=== PATIENT | male | born 1945 | race Caucasian/White ===

== ENCOUNTER 2019-07-24 23:48 | Emergency (ER) | payer OTHER, MEDICARE, SELFPAY ==
[2019-07-24 23:53] VITALS: BP 184/93; PULSE 61; RESP 18; TEMP 36.4; O2SAT 99; BMI 25.1
--- NOTE | 2019-07-25 00:01 | DI.RAD.S_ITS ---
PROCEDURE: XR ACUTE ABDOMEN SERIES INDICATIONS: Abdominal pain, vomiting TECHNIQUE: One view chest and two views of the abdomen were acquired. COMPARISON: None. FINDINGS: Surgical changes and devices: None. Chest: Lungs are clear. Heart size is normal. No pleural effusions. No pneumoperitoneum. Abdomen: There is a large gas filled hiatal hernia. Multiple differential air-fluid levels are present on the upright view. There is likely a dilated loop of small bowel at the right. Some gas and stool is visualized within the ascending colon. Bones: No suspicious bony lesions. IMPRESSION: 1. No acute cardiopulmonary findings. 2. Gas-filled hiatal hernia. 3. Nonspecific bowel gas pattern. However, differential air-fluid levels and questionable right lower quadrant small bowel dilatation may suggest early partial small bowel obstruction. If there is high clinical suspicion for partial obstruction, CT of the abdomen could be used. Dictated by: Jill Guevara M.D. on 07/25/2019 at 6:50 Approved by: Jill Guevara M.D. on 07/25/2019 at 6:53
--- NOTE | 2019-07-25 00:01 | DI.US.S_ITS ---
PROCEDURE: US ABDOMEN LIMITED INDICATIONS: POSTPRANDIAL EPIGASTRIC PAIN TECHNIQUE: Real-time scanning was performed of the abdominal and retroperitoneal organs, with image documentation. COMPARISON: None. FINDINGS: Liver: The liver measures 17.2 cm length and demonstrates increased echogenicity. Gallbladder: The gallbladder wall measures 2.7 mm in diameter. Sludge layered within the fundus. No pericholecystic fluid or sonographic Paredes's sign. Biliary ducts: Intrahepatic bile ducts are non-dilated. Extrahepatic bile duct caliber measures 4.9 mm. Normal is 6-7 mm or less in diameter, or 10 mm or less post-cholecystectomy. Pancreas: The pancreas is not visualized due to bowel gas. IMPRESSION: 1. Gallbladder sludge. No findings to suggest acute cholecystitis or choledocholithiasis. 2. Increased hepatic echogenicity suggesting hepatic steatosis although other sources of hepatocellular dysfunction cannot be excluded. Dictated by: Jill Guevara M.D. on 07/25/2019 at 6:53 Approved by: Jill Guevara M.D. on 07/25/2019 at 6:54
--- NOTE | 2019-07-25 00:01 | ED_ITS ---
HPI - Abdominal Pain General Chief Complaint: Abdominal Pain Stated Complaint: abdominal pain Time Seen by Provider: 07/24/19 23:50 Source: patient Mode of arrival: Ambulatory Limitations: no limitations History of Present Illness HPI narrative: 74-year-old male nonsmoker with history of hypertension presents with his and a chief complaint of severe epigastric pain after eating ice cream this evening. He has had multiple episodes of vomiting. He denies any provocation or palliation of his pain. He denies any history of pain. He has never had any abdominal surgeries. Denies any change in bowel habits and states he had a normal bowel movement this morning. He denies any radiation of his pain MD complaint: abdominal pain Onset (ago): hour(s) Pain Consistency: constant Location: epigastric Severity: severe Radiation: none Relieving factors: nothing Exacerbating factors: nothing Associated symptoms: nausea and vomiting Related Data Previous Rx's Medication Instructions Recorded hydrocodone-acetaminophen 1 tab PO Q4-6H PRN #10 tab 07/25/19 ondansetron 4 mg PO TID-QID PRN #10 tab 07/25/19 pantoprazole [Protonix] 40 mg PO DAILY #30 tab 07/25/19 Allergies Allergy/AdvReac Type Severity Reaction Status Date / Time No Known Drug Allergies Allergy Verified 07/24/19 23:58 Review of Systems Constitutional Constitutional: Denies chills, Denies fatigue, Denies fever(s), Denies frequent falls, Denies lethargy and Denies weakness Eyes Eyes: Denies change in vision, Denies eye discharge, Denies irritation and Denies loss of vision ENT Ears, Nose, Mouth, and Throat: Denies change in voice, Denies dizziness, Denies neck pain, Denies sore throat and Denies throat swelling Cardiovascular Cardiovascular: Denies chest pain, Denies irregular heart rhythm, Denies lightheadedness, Denies palpitations, Denies dyspnea, Denies dyspnea on exertion and Denies orthopnea Respiratory Respiratory: Denies cough, Denies dyspnea, Denies dyspnea on exertion and Denies wheezing Gastrointestinal Gastrointestinal: Reports abdominal pain, Denies change in bowel habits, Denies diarrhea, Reports nausea and Reports vomiting Genitourinary Genitourinary: Denies hematuria, Denies flank pain, Denies urinary incontinence and Denies urinary urgency Musculoskeletal Musculoskeletal: Denies back pain, Denies muscle weakness, Denies neck pain, Denies numbness and Denies tingling Integumentary/Breasts Skin/Breast: Denies pruritus, Denies erythema, Denies rash and Denies wounds Neurologic Neurologic: Denies behavioral changes, Denies confusion, Denies dizziness, Denies frequent falls, Denies loss of vision, Denies numbness, Denies tingling and Denies weakness Psychiatric Psychiatric: Denies anxiety, Denies behavioral changes, Denies confusion, Denies depression, Denies homicidal ideation and Denies suicidal ideation Endocrine Endocrine: Denies fatigue, Denies flushing and Denies palpitations Hematologic/Lymphatic Hematologic/Lymphatic: Denies easy bruising Allergic/Immunologic Allergic/Immunologic: Denies urticaria, Denies throat swelling and Denies wheezing Patient History Social History Smoking Status: Unknown if ever smoked alcohol intake frequency: holidays/special occasions only Substance Use Type: does not use Exam Narrative Exam Narrative: GENERAL: [74] year old patient appears stated age. Well- nourished, well-developed patient, in mild distress. HEAD: Atraumatic. Normocephalic. EYES: Pupils equal round and reactive. Extraocular motions intact. No scleral icterus. No injection or drainage. ENT: Nose without bleeding, purulent drainage. Throat without erythema, tonsillar hypertrophy or exudate. Airway patent. NECK: Trachea midline. Non tender CARDIOVASCULAR: Regular rate and rhythm without murmurs, gallops, or rubs. RESPIRATORY: Clear to auscultation. Breath sounds equal bilaterally. No wheezes, rales, or rhonchi. GASTROINTESTINAL: Abdomen soft, epigastric pain does not worsen with palpation, no pulsatile mass, mild distension is baseline per patient EXTREMITIES: No edema or joint tenderness. BACK: Nontender without deformity or crepitance. No flank tenderness. NEURO: AOx3. SKIN: No rash or erythema of visible areas Initial Vital Signs Initial Vital Signs: Vital Signs Temperature 97.5 F L 07/24/19 23:53 Pulse Rate 61 07/24/19 23:53 Respiratory Rate 18 07/24/19 23:53 Blood Pressure 184/93 H 07/24/19 23:53 Pulse Oximetry 99 07/24/19 23:53 Course Orders Ordered: ED Orders 07/24/19 23:59 Complete Blood Count AUTO DIFF Stat Comprehensive Metabolic Panel Stat Lactate Dehydrogenase Stat Lipase Stat 07/25/19 00:01 US abdomen limited Stat XR acute abdomen series Stat 07/25/19 00:18 Urine Microscopic Stat 07/25/19 01:29 CT abdomen pelvis w con Stat Sodium Chloride (Normal Saline 0.9%) 1,000 mls @ 150 mls/hr IV CONT MATTHEW Last Admin: 07/25/19 00:08 Dose: 150 mls/hr Documented by: VIKRAM Discontinued Medications Hydrocodone Bitart/Acetaminophen (Vicodin 5/325 Prepack) 1 bottle MISC SEEINSTR ONE Stop: 07/25/19 03:40 Hydromorphone HCl (Dilaudid) 0.5 mg IV NOW ONE Stop: 07/24/19 23:59 Last Admin: 07/25/19 00:08 Dose: 0.5 mg Documented by: VIKRAM Hydromorphone HCl (Dilaudid) 0.5 mg IV NOW ONE Stop: 07/25/19 01:03 Last Admin: 07/25/19 01:16 Dose: 0.5 mg Documented by: KHANH Hydromorphone HCl (Dilaudid) 1 mg IV NOW ONE Stop: 07/25/19 01:57 Last Admin: 07/25/19 02:00 Dose: 1 mg Documented by: KHANH Ondansetron HCl (Zofran) 4 mg IV NOW ONE Stop: 07/24/19 23:59 Last Admin: 07/25/19 00:08 Dose: 4 mg Documented by: VIKRAM Ondansetron HCl (Zofran Odt Prepack) 1 bottle MISC SEEINSTR ONE Stop: 07/25/19 03:45 Vital Signs Vital signs: Vital Signs - 8 hr 07/24/19 23:53 07/25/19 01:30 07/25/19 03:00 Temperature 97.5 F L Pulse Rate 61 57 L 64 Respiratory Rate 18 13 15 Blood Pressure 184/93 H Blood Pressure [Right Arm] 142/78 H 168/97 H Pulse Oximetry 99 99 98 07/25/19 03:30 Temperature Pulse Rate 73 Respiratory Rate 15 Blood Pressure Blood Pressure [Right Arm] 161/99 H Pulse Oximetry 99 MDM - Abdominal Pain Lab Data Result diagrams: 07/24/19 23:59 07/24/19 23:59 Labs: Lab Results 07/24/19 07/24/19 07/24/19 Range/Units 00:00 23:59 23:59 WBC 10.4 (4.5-11.0) X10^3/uL RBC 5.16 (4.5-5.9) X10^6/uL Hgb 15.9 (13.5-17.5) g/dL Hct 46.7 (41-53) % MCV 90.5 (80-100) fL MCH 30.9 (26-34) PG MCHC 34.1 (30-36) % RDW 13.9 (11.6-14.8) % Plt Count 261 (150-400) X10^3/uL Neut % (Auto) 70.8 (50-75) % Lymph % (Auto) 20.1 L (25-40) % [place] % (Auto) 8.0 (3-14) % Eos % (Auto) 0.8 L (2-4) % Baso % (Auto) 0.3 (0-2) % Neut # (Auto) 7400 H (0414-5384) /uL Lymph # (Auto) 2100 (7135-6392) /uL [place] # (Auto) 800 (0-900) /uL Eos # (Auto) 100 (0-450) /uL Baso # (Auto) 0 (0-100) /uL Sodium 138 (137-145) mmol/L Potassium 3.9 (3.4-5.1) mmol/L Chloride 103 (98-107) mmol/L Carbon Dioxide 26 (22-32) mmol/L BUN 24 H (9-20) mg/dL Creatinine 1.20 (0.66-1.25) mg/dL Estimated GFR 58.9 L (>60) mL/min BUN/Creatinine Ratio 20.0 (6-22) Glucose 182 H (80-110) mg/dL Calcium 9.1 (8.4-10.2) mg/dL Total Bilirubin 0.6 (0.2-1.3) mg/dL AST 28 (17-59) IU/L ALT 27 (<50) IU/L Alkaline Phosphatase 87 (38-126) U/L Lactate Dehydrogenase 509 (313-618) U/L Total Protein 7.5 (6.3-8.2) g/dL Albumin 4.6 (3.5-5.0) g/dL Globulin 2.9 (1.7-4.1) g/dL Albumin/Globulin Ratio 1.6 (1.0-2.8) Lipase 166 (23-300) U/L Urine RBC None seen (0-5/HPF) Urine WBC 1-5/hpf (0-5/HPF) Ur Squamous Epith Cells None seen (0-5/HPF) Amorphous Sediment 1+ Urine Bacteria None seen (None) Ur Culture Indicated? Cult not indicated Point of care testing: Urine Dip Bedside Urine Glucose Negative Bedside Urine Bilirubin - Negative Bedside Urine Ketone - Negative Urine Specific [place] 1.020 Bedside Urine Occult Blood + Bedside Urine pH 6 Bedside Urine Protein +/- 15 Bedside Urine Urobilinogen - Negative Bedside Urine Nitrite - Negative Bedside Urine Leukocytes + [address] scan - abdomen: Radiologist's impression: Moderate to large hiatal hernia, mild thickening of the gastric wall particularly antral partially collapsed probably artifactual cannot exclude gastritis ECG Data Interpretation: EKG is normal sinus rhythm rate [60] and free of any signs of ischemia or ectopy. No ST segmental elevation or depression. No T wave inversions MDM Narrative Medical decision making narrative: 74-year-old male presents with sudden onset epigastric pain with nausea and vomiting after eating. Extensive workup including consideration of gallbladder disease which is thought less likely given lack of laboratory findings, though ultrasound did show sludge there is no sign of cholecystitis. Pancreatitis considered but thought less likely given lack of lab or imaging findings. Bowel obstruction considered but thought less likely given lack of imaging findings. Gastritis and esophageal spasm thought to be most likely culprits given imaging findings and response to therapy. We did discuss observation in the hospital for continued pain control but patient elects to go home despite discussion of risks and benefits. Patient has had q uestions answered to his apparent satisfaction and understands return precautions Discharge Plan Departure Patient Disposition: Home Clinical Impression: Gastritis Qualifiers: Gastritis type: unspecified gastritis Chronicity: acute Gastritis bleeding: without bleeding Qualified Code(s): K29.00 - Acute gastritis without bleeding Instructions: [place] Diet, DI for Gastritis Activity Restrictions/Additional Instructions: 1. Drink plenty of fluids with frequent small sips. 2. For the next 24 hours a clear liquid diet is advised. After that please employ a brat diet which would include bananas, rice, apples, toast. 3. Please take medications as directed. 4. Please follow-up with your doctor in the next 1-2 days. Call the office for an appointment. 5. Please return to the emergency Department for any worsening or persistent symptoms, such as increasing pain or fever. Prescriptions: New hydrocodone-acetaminophen 5-325 mg tablet 1 tab PO Q4-6H PRN (Reason: pain) Qty: 10 RF: 0 pantoprazole [Protonix] 40 mg tablet,delayed release (DR/EC) 40 mg PO DAILY Qty: 30 RF: 0 ondansetron 4 mg tablet,disintegrating 4 mg PO TID-QID PRN (Reason: nausea and vomiting) Qty: 10 RF: 0 Referrals: [facility] [Outside]
[2019-07-25] MEDS: SODIUM CHLORIDE 0.9% 1,000 ML 150 ML IV (00:08)
[2019-07-25] MEDS: ONDANSETRON 4 MG/2 ML INJ IV (00:08)
[2019-07-25] MEDS: HYDROMORPHONE 0.5 MG INJ IV ×2 (00:08→01:16)
[2019-07-25 00:21] LABS: Alanine Aminotransferase 27 IU/L (<50); Albumin 4.6 g/dL (3.5-5.0); Albumin Globulin Ratio 1.6 (1.0-2.8); Alkaline Phosphatase 87 U/L (38-126); Aspartate Aminotransferase 28 IU/L (17-59); Bilirubin Total 0.6 mg/dL (0.2-1.3); Blood Urea Nitrogen 24 mg/dL (9-20); Calcium 9.1 mg/dL (8.4-10.2); Carbon Dioxide 26 mmol/L (22-32); Chloride 103 mmol/L (98-107); Estimated Glomerular Filt Rate 58.9 mL/min (>60); Globulin 2.9 g/dL (1.7-4.1); Glucose 182 mg/dL (80-110); HEMOLYSIS 21 (0-50); Lipase 166 U/L (23-300); Potassium 3.9 mmol/L (3.4-5.1); Sodium 138 mmol/L (137-145); Total Protein 7.5 g/dL (6.3-8.2)
[2019-07-25 00:22] LABS: Bacteria Urine None Seen; RBC Urine None Seen (0-5/HPF)
[2019-07-25 00:23] LABS: Add Manual Diff / Slide Review NO; Basophils Absolute Auto 0 /uL (0-100); Basophils Percent Auto 0.3 % (0-2); Eosinophils Absolute Auto 100 /uL (0-450); Eosinophils Percent Auto 0.8 % (2-4); Hematocrit 46.7 % (41-53); Hemoglobin 15.9 g/dL (13.5-17.5); Lymphocytes Absolute Auto 2100 /uL (1100-4500); Lymphocytes Percent Auto 20.1 % (25-40); Mean Corpuscular HGB Conc 34.1 % (30-36); Mean Corpuscular Hemoglobin 30.9 PG (26-34); Mean Corpuscular Volume 90.5 fL (80-100); Monocytes Absolute Auto 800 /uL (0-900); Neutrophils Absolute Auto 7400 /uL (1500-7000); Neutrophils Percent Auto 70.8 % (50-75); Platelet Count 261 X10^3/uL (150-400); Red Blood Cell Count 5.16 X10^6/uL (4.5-5.9); Red Cell Distribution Width 13.9 % (11.6-14.8); White Blood Cell Count 10.4 X10^3/uL (4.5-11.0)
[2019-07-25 00:33] LABS: Amorphous Sediment Urine 1+; Culture Indicated Urine Cult Not Indicated; Squamous Epithelial Cell Urine None Seen (0-5/HPF); WBC Urine 1-5/HPF (0-5/HPF)
[2019-07-25 00:35] LABS: Lactate Dehydrogenase 509 U/L (313-618)
--- NOTE | 2019-07-25 01:29 | DI.CT.S_ITS ---
PROCEDURE: CT ABDOMEN PELVIS W CON INDICATIONS: severe abdominal pain TECHNIQUE: After the administration of intravenous contrast, 5 mm thick sections acquired from the diaphragm to the symphysis. 5 mm coronal and sagittal reformats were acquired. For radiation dose reduction, the following was used: automated exposure control, adjustment of mA and/or kV according to patient size. COMPARISON: None. FINDINGS: Image quality: Excellent. ABDOMEN: Lung bases: Mild atelectasis is present at the dependent lung bases. There is a moderate sized hiatal hernia. The gastric cardia demonstrates mild wall thickening likely secondary to nondistention. Solid organs: Liver is normal in size and diffusely hypodense suggesting fatty infiltration. Focal fatty sparing is present at the gallbladder fossa. Gallbladder is unremarkable. Biliary system is non dilated. Pancreas enhances normally. Spleen is normal in size and enhancement. No adrenal nodules. Kidneys demonstrate normal size and enhancement, without hydronephrosis. A low density cyst is present within the upper pole of the right kidney. A low density cyst is present within the midpole the left kidney. Peritoneum and bowel: Bowel loops demonstrate normal wall thickness and caliber. Scattered sigmoid colon diverticular outpouchings are present. No mucosal thickening or pericolonic fat stranding to suggest acute diverticulitis. The appendix is not visualized; however there are no ancillary findings to suggest acute appendicitis. No free fluid or air. Nodes and vessels: No retroperitoneal or mesenteric adenopathy by size criteria. Aorta and inferior vena cava are normal in size. Scattered atheromatous calcifications are present throughout the abdominal aorta. Miscellaneous: No ventral hernias. PELVIS: Genitourinary: Bladder wall thickness is normal. The prostate is mildly enlarged and wound centrally calcified. Miscellaneous: No inguinal hernias or adenopathy. Bones: No suspicious bony lesions. No vertebral body compression fractures. IMPRESSION: 1. No acute intra-abdominal findings. Specifically, no bowel dilatation to suggest obstruction or ileus. 2. The appendix is not visualized; however there are no ancillary findings to suggest acute appendicitis. 3. Diverticulosis. No acute diverticulitis. 4. Moderate-sized hiatal hernia with gastric thickening of the cardia which is likely positional in nature. However, gastritis cannot be excluded. Please correlate clinically and consider direct visualization if indicated. 5. Hepatic steatosis. These findings are concordant with the overnight interpretation. Dictated by: Jill Guevara M.D. on 07/25/2019 at 7:01 Approved by: Jill Guevara M.D. on 07/25/2019 at 7:05
[2019-07-25 01:30] VITALS: BP 142/78; PULSE 57; RESP 13; O2SAT 99
--- NOTE | 2019-07-25 01:31 | PC.NURSE ---
patient o2 sats at 90% after second dose of dilaudid. Placed on 2l NC.
[2019-07-25] MEDS: HYDROMORPHONE 1 MG INJ IV (02:00)
[2019-07-25 03:00] VITALS: BP 168/97; PULSE 64; RESP 15; O2SAT 98
[2019-07-25 03:30] VITALS: BP 161/99; PULSE 73; RESP 15; O2SAT 99
[2019-07-25] MEDS: ONDANSETRON 4 MG ODT PREPACK 1 BOTTLE MISC (04:26)
[2019-07-25] MEDS: HYDROCODONE/ACET 5/325 PREPACK 1 BOTTLE MISC (04:26)
[2019-07-25 04:32] VITALS: BP 161/97; PULSE 65; RESP 16; O2SAT 99
== END 2019-07-25 04:33 | disposition home or self-care (01) ==
PROVIDERS: Emergency Provider Emergency Medicine
DX: K29.00 Acute gastritis without bleeding (principal); R11.2 Nausea with vomiting, unspecified
CPT/HCPCS: 36415; 74022; 74177; 76705; 80053; 81003; 81015; 83615; 83690; 85025; 93005; 96361; 96374; 96375; 96376; 99283; 99285; J1170; J2405; Q9967

== ENCOUNTER 2019-07-29 12:18 | Emergency (ER) | payer OTHER, MEDICARE, SELFPAY ==
[2019-07-29 12:23] VITALS: BP 149/96; PULSE 83; RESP 18; TEMP 36.7; O2SAT 98
[2019-07-29 14:51] VITALS: BP 133/93; PULSE 67; RESP 20; O2SAT 96
--- NOTE | 2019-07-29 14:54 | ED_ITS ---
HPI - Headache <Corinne Leahy PA-C - Last Filed: 07/29/19 20:29> General Chief Complaint: Headache Stated Complaint: shooting pain back of head Time Seen by Provider: 07/29/19 14:52 Source: patient Mode of arrival: Ambulatory Limitations: no limitations History of Present Illness HPI Narrative: This 74-year-old male returns to ED due to persistent headaches which have gradually become more steady. He states that he has a long history of migraines which got better as he aged. Typically if he gets any symptoms now it will resolve with Excedrin migraine, however for the last at least several months he has had intermittent atypical headaches which are an ?electrical shock? type pain in his right posterior scalp which radiate up. He states the pain lasts a couple of seconds, would usually resolve on its own but for the last couple of days have been persistent. He thinks maybe pain medicine he got here the other night for gastritis helped for a little while. May be fluids hel p a little. He states he also took a sleeping pill like NyQuil last night which helped for a little while, otherwise pain can make it difficult to sleep. He denies any other exacerbating or alleviating features, stating modest pain is constant. He denies any fall or trauma. He denies any neck pain, weakness in the extremities or paresthesia. He denies any vision change, nausea or vomiting and has been going about his usual activities. He states that this is quite different than his typical headaches. He does think he had a flu type syndrome before this started, with chills and sweats, runny nose and cough 7-10 days ago, however that has gotten better. He had not had any chest pain or dyspnea. He denies any pain or swelling in the extremities, abdominal pain or other new complaints on systems review. He moved here from [place] recently and does not have a local PCP Related Data Previous Rx's Medication Instructions Recorded hydrocodone-acetaminophen 1 tab PO Q4-6H PRN #10 tab 07/25/19 ondansetron 4 mg PO TID-QID PRN #10 tab 07/25/19 pantoprazole [Protonix] 40 mg PO DAILY #30 tab 07/25/19 gabapentin [Neurontin] 300 mg PO Q8H #30 cap 07/29/19 Allergies Allergy/AdvReac Type Severity Reaction Status Date / Time No Known Drug Allergies Allergy Verified 07/24/19 23:58 Review of Systems <Corinne Leahy PA-C - Last Filed: 07/29/19 20:29> Review of Systems ROS Unobtainable: All systems reviewed & are unremarkable except as noted in HPI and below Patient History <Corinne Leahy PA-C - Last Filed: 07/29/19 20:29> Medical History (Updated 07/29/19 @ 17:11 by Corinne Leahy PA-C) HTN (hypertension) (Chronic) Migraine headache (Chronic) Surgical History (Updated 07/29/19 @ 15:24 by Corinne Leahy PA-C) Status post hernia repair (Resolved) Social History Smoking Status: Never smoker Smoking Status: Never smoker alcohol intake frequency: holidays/special occasions only Substance Use Type: does not use Exam <Corinne Leahy PA-C - Last Filed: 07/29/19 20:29> Narrative Exam Narrative: GENERAL APPEARANCE: Patient sitting comfortably, in no distress. HEENT: PERRL, EOMI, normal TMs and oropharynx, no sinus TTP. No mastoid tenderness NECK: Supple, no masses LUNGS: Clear to auscultation bilaterally. HEART: Rate and rhythm regular without murmur, normal S1 and S2, no S3 or S4. ABDOMEN: Soft, NT, ND, + BS x 4 quadrants NEUROLOGIC: Alert and oriented, normal speech, gait and coordination. DTRs 2+ throughout aside from patellar which are 3+ bilaterally MUSCULOSKELETAL: Full Csp AROM, no C-spine or paraspinal tenderness. Full range of motion through the extremities without tenderness. Strength 5/5 throughout all bauer bilateral upper and lower extremities without tenderness DERMATOLOGIC: 1 pink barely raised papule noted on the right posterior scalp, no other lesions noted Initial Vital Signs Initial Vital Signs: Vital Signs Temperature 98.0 F 07/29/19 12:23 Pulse Rate 83 07/29/19 12:23 Respiratory Rate 18 07/29/19 12:23 Blood Pressure 149/96 H 07/29/19 12:23 Pulse Oximetry 98 07/29/19 12:23 <Renetta Schulz MD - Last Filed: 08/07/19 07:19> Initial Vital Signs Initial Vital Signs: Vital Signs Temperature 98.0 F 07/29/19 12:23 Pulse Rate 83 07/29/19 12:23 Respiratory Rate 18 07/29/19 12:23 Blood Pressure 149/96 H 07/29/19 12:23 Pulse Oximetry 98 07/29/19 12:23 Course <Corinne Leahy PA-C - Last Filed: 07/29/19 20:29> Course Additional Information: Patient has a neurologically normal exam. Headaches are chronic, more persistent recently. Discussed this pain appears to be neuropathic. He did have some improvement with low-dose gabapentin today, no drowsiness or other side effects. It is possible that he had shingles prior to onset is I did see 1 skin lesion on his scalp. We discussed this could also be another type of nerve pain or headache syndrome and does need follow-up, but appears safe for him to monitor at home for now. He was given a prescription for gabapentin. I reviewed findings with attending physician Dr. Schulz who agrees with treatment plan, does not think treatment for temporal arteritis needed given patient lack of any typical symptoms such as vision change or jaw claudication. Headache is atypical for this as well. Patient is going to get established with a local PCP and agreed to return to ED in the interim if any acutely worsening symptoms. Orders Ordered: Discontinued Medications Gabapentin (Neurontin) 200 mg PO NOW ONE Stop: 07/29/19 15:13 Last Admin: 07/29/19 15:52 Dose: 200 mg Documented by: BTONER Vital Signs Vital signs: Vital Signs - 8 hr 07/29/19 14:51 07/29/19 16:06 07/29/19 16:30 Pulse Rate 67 77 67 Respiratory Rate 20 22 21 Blood Pressure Blood Pressure [Left Arm] 133/93 H 138/85 143/86 H Pulse Oximetry 96 99 97 07/29/19 17:22 Pulse Rate 72 Respiratory Rate 17 Blood Pressure 154/106 H Blood Pressure [Left Arm] Pulse Oximetry 96 <Renetta Schulz MD - Last Filed: 08/07/19 07:19> Orders Ordered: Discontinued Medications Gabapentin (Neurontin) 200 mg PO NOW ONE Stop: 07/29/19 15:13 Last Admin: 07/29/19 15:52 Dose: 200 mg Documented by: BTONER Vital Signs Vital signs: Vital Signs - 8 hr 07/29/19 14:51 07/29/19 16:06 07/29/19 16:30 Pulse Rate 67 77 67 Respiratory Rate 20 22 21 Blood Pressure Blood Pressure [Left Arm] 133/93 H 138/85 143/86 H Pulse Oximetry 96 99 97 07/29/19 17:22 Pulse Rate 72 Respiratory Rate 17 Blood Pressure 154/106 H Blood Pressure [Left Arm] Pulse Oximetry 96 MDM - Headache <Corinne Leahy PA-C - Last Filed: 07/29/19 20:29> Lab Data Attestation: I reviewed the patient's lab results. Result diagrams: 07/29/19 15:32 07/29/19 15:32 Labs: Lab Results 07/29/19 07/29/19 07/29/19 Range/Units 15:32 15:32 17:10 WBC 10.9 (4.5-11.0) X10^3/uL RBC 4.95 (4.5-5.9) X10^6/uL Hgb 15.4 (13.5-17.5) g/dL Hct 43.9 (41-53) % MCV 88.7 (80-100) fL MCH 31.1 (26-34) PG MCHC 35.0 (30-36) % RDW 13.5 (11.6-14.8) % Plt Count 278 (150-400) X10^3/uL Neut % (Auto) 73.7 (50-75) % Lymph % (Auto) 13.4 L (25-40) % [place] % (Auto) 11.1 (3-14) % Eos % (Auto) 1.4 L (2-4) % Baso % (Auto) 0.4 (0-2) % Neut # (Auto) 8000 H (5164-8747) /uL Lymph # (Auto) 1500 (7718-1815) /uL [place] # (Auto) 1200 H (0-900) /uL Eos # (Auto) 200 (0-450) /uL Baso # (Auto) 0 (0-100) /uL ESR 33 H (0-15) MM/HR Sodium 139 (137-145) mmol/L Potassium 3.8 (3.4-5.1) mmol/L Chloride 99 (98-107) mmol/L Carbon Dioxide 28 (22-32) mmol/L BUN 20 (9-20) mg/dL Creatinine 1.10 (0.66-1.25) mg/dL Estimated GFR > 60.0 (>60) mL/min BUN/Creatinine Ratio 18.2 (6-22) Glucose 93 (80-110) mg/dL Calcium 9.0 (8.4-10.2) mg/dL Total Bilirubin 1.0 (0.2-1.3) mg/dL AST 24 (17-59) IU/L ALT 22 (<50) IU/L Alkaline Phosphatase 118 (38-126) U/L C-Reactive Protein 17.2 H (<1.0) mg/dL Total Protein 7.2 (6.3-8.2) g/dL Albumin 4.2 (3.5-5.0) g/dL Globulin 3.0 (1.7-4.1) g/dL Albumin/Globulin Ratio 1.4 (1.0-2.8) Influenza A (RT-PCR) Flu a negative (NEGATIVE) Influenza B (RT-PCR) Flu b negative (NEGATIVE) Imaging Data head: Radiologist's impression: [place] [address] CT Scan Report Signed Patient: Elvin Hastings R#: [id number] : 3Acct:[id number] Age/Sex: 74 / MDate of Service: 07/29/19 Loc: ED Accession Number: [id number] Procedure: CT head/brain wo con Ordering Provider: Corinne Leahy P.A-C PROCEDURE: CT HEAD/BRAIN WO CON INDICATIONS: atypical WALLACE, worsening TECHNIQUE: Noncontrast 4.5 mm thick angled axial sections acquired from the foramen magnum to the vertex, with coronal and sagittal reformats. For radiation dose reduction, the following was used: automated exposure control, adjustment of mA and/or kV according to patient size. COMPARISON: None. FINDINGS: Image quality: Excellent. CSF spaces: Basal cisterns are patent. No extra-axial fluid collections. The ventricles are symmetric in size and shape. Brain: No intracranial bleeds or masses. There is cerebral volume loss for age, with resultant ventricular and sulcal prominence. There are periventricular and deep white matter chronic small vessel ischemic changes. There is intracranial internal carotid artery atherosclerosis. Skull and face: Calvarium and visualized facial bones appear intact, without suspicious lesions. Sinuses: Visualized sinuses and mastoids are clear. IMPRESSION: No acute intracranial abnormality. Dictated by: Rylie Ardon M.D. on 07/29/2019 at 15:31 Approved by: Rylie Ardon M.D. on 07/29/2019 at 15:32 <Renetta Schulz MD - Last Filed: 08/07/19 07:19> Lab Data Labs: Lab Results 07/29/19 07/29/19 07/29/19 Range/Units 15:32 15:32 17:10 WBC 10.9 (4.5-11.0) X10^3/uL RBC 4.95 (4.5-5.9) X10^6/uL Hgb 15.4 (13.5-17.5) g/dL Hct 43.9 (41-53) % MCV 88.7 (80-100) fL MCH 31.1 (26-34) PG MCHC 35.0 (30-36) % RDW 13.5 (11.6-14.8) % Plt Count 278 (150-400) X10^3/uL Neut % (Auto) 73.7 (50-75) % Lymph % (Auto) 13.4 L (25-40) % [place] % (Auto) 11.1 (3-14) % Eos % (Auto) 1.4 L (2-4) % Baso % (Auto) 0.4 (0-2) % Neut # (Auto) 8000 H (3935-6876) /uL Lymph # (Auto) 1500 (5183-1702) /uL [place] # (Auto) 1200 H (0-900) /uL Eos # (Auto) 200 (0-450) /uL Baso # (Auto) 0 (0-100) /uL ESR 33 H (0-15) MM/HR Sodium 139 (137-145) mmol/L Potassium 3.8 (3.4-5.1) mmol/L Chloride 99 (98-107) mmol/L Carbon Dioxide 28 (22-32) mmol/L BUN 20 (9-20) mg/dL Creatinine 1.10 (0.66-1.25) mg/dL Estimated GFR > 60.0 (>60) mL/min BUN/Creatinine Ratio 18.2 (6-22) Glucose 93 (80-110) mg/dL Calcium 9.0 (8.4-10.2) mg/dL Total Bilirubin 1.0 (0.2-1.3) mg/dL AST 24 (17-59) IU/L ALT 22 (<50) IU/L Alkaline Phosphatase 118 (38-126) U/L C-Reactive Protein 17.2 H (<1.0) mg/dL Total Protein 7.2 (6.3-8.2) g/dL Albumin 4.2 (3.5-5.0) g/dL Globulin 3.0 (1.7-4.1) g/dL Albumin/Globulin Ratio 1.4 (1.0-2.8) Influenza A (RT-PCR) Flu a negative (NEGATIVE) Influenza B (RT-PCR) Flu b negative (NEGATIVE) Discharge Plan Departure Patient Disposition: Home Clinical Impression: Neuropathic pain Headache Qualifiers: Headache type: other headache syndrome Qualified Code(s): G44.89 - Other headache syndrome Discharge Date/Time: 07/29/19 17:24 Instructions: DI for Headache, Neuropathic Pain Activity Restrictions/Additional Instructions: As we talked about, you should return if you have any acutely worsening symptoms, such as more severe headache, or new symptoms such as fever, vision change, or vomiting. Since the medication seemed to help a little bit today, I have prescribed a slightly higher dose for you, try taking it 3 times daily and you can increase to 2 capsules at bedtime if you need to, however remember it can make you sleepy and not to drive or do other activities were you need to be alert until you have had time to determine how you respond to it. I suspect that your headache is caused by some type of nerve inflammation or irritation, and this may take further testing to determine the source. Please call the [facility] 1st thing tomorrow and let them know you were seen in the emergency room and we would like you to be seen for follow-up by middle of next week so that they can help you get set up with a local primary care provider. Prescriptions: New gabapentin [Neurontin] 300 mg capsule 300 mg PO Q8H Qty: 30 RF: 0 No Action hydrocodone-acetaminophen 5-325 mg tablet 1 tab PO Q4-6H PRN (Reason: pain) Qty: 10 RF: 0 pantoprazole [Protonix] 40 mg tablet,delayed release (DR/EC) 40 mg PO DAILY Qty: 30 RF: 0 ondansetron 4 mg tablet,disintegrating 4 mg PO TID-QID PRN (Reason: nausea and vomiting) Qty: 10 RF: 0
--- NOTE | 2019-07-29 15:11 | DI.CT.S_ITS ---
PROCEDURE: CT HEAD/BRAIN WO CON INDICATIONS: atypical WALLACE, worsening TECHNIQUE: Noncontrast 4.5 mm thick angled axial sections acquired from the foramen magnum to the vertex, with coronal and sagittal reformats. For radiation dose reduction, the following was used: automated exposure control, adjustment of mA and/or kV according to patient size. COMPARISON: None. FINDINGS: Image quality: Excellent. CSF spaces: Basal cisterns are patent. No extra-axial fluid collections. The ventricles are symmetric in size and shape. Brain: No intracranial bleeds or masses. There is cerebral volume loss for age, with resultant ventricular and sulcal prominence. There are periventricular and deep white matter chronic small vessel ischemic changes. There is intracranial internal carotid artery atherosclerosis. Skull and face: Calvarium and visualized facial bones appear intact, without suspicious lesions. Sinuses: Visualized sinuses and mastoids are clear. IMPRESSION: No acute intracranial abnormality. Dictated by: Rylie Ardon M.D. on 07/29/2019 at 15:31 Approved by: Rylie Ardon M.D. on 07/29/2019 at 15:32
[2019-07-29 15:40] LABS: Add Manual Diff / Slide Review NO; Basophils Absolute Auto 0 /uL (0-100); Basophils Percent Auto 0.4 % (0-2); Eosinophils Absolute Auto 200 /uL (0-450); Eosinophils Percent Auto 1.4 % (2-4); Hematocrit 43.9 % (41-53); Hemoglobin 15.4 g/dL (13.5-17.5); Lymphocytes Absolute Auto 1500 /uL (1100-4500); Lymphocytes Percent Auto 13.4 % (25-40); Mean Corpuscular Hemoglobin 31.1 PG (26-34); Mean Corpuscular Volume 88.7 fL (80-100); Monocytes Absolute Auto 1200 /uL (0-900); Monocytes Percent Auto 11.1 % (3-14); Neutrophils Absolute Auto 8000 /uL (1500-7000); Neutrophils Percent Auto 73.7 % (50-75); Platelet Count 278 X10^3/uL (150-400); Red Blood Cell Count 4.95 X10^6/uL (4.5-5.9); Red Cell Distribution Width 13.5 % (11.6-14.8); White Blood Cell Count 10.9 X10^3/uL (4.5-11.0)
[2019-07-29] MEDS: GABAPENTIN 100 MG CAPSULE 200 MG PO (15:52)
[2019-07-29 15:55] LABS: Alanine Aminotransferase 22 IU/L (<50); Albumin 4.2 g/dL (3.5-5.0); Albumin Globulin Ratio 1.4 (1.0-2.8); Alkaline Phosphatase 118 U/L (38-126); Aspartate Aminotransferase 24 IU/L (17-59); BUN Creatinine Ratio 18.2 (6-22); Blood Urea Nitrogen 20 mg/dL (9-20); Carbon Dioxide 28 mmol/L (22-32); Chloride 99 mmol/L (98-107); Estimated Glomerular Filt Rate > 60.0 mL/min (>60); Glucose 93 mg/dL (80-110); HEMOLYSIS < 15 (0-50); Potassium 3.8 mmol/L (3.4-5.1); Sodium 139 mmol/L (137-145); Total Protein 7.2 g/dL (6.3-8.2)
[2019-07-29 16:06] VITALS: BP 138/85; PULSE 77; RESP 22; O2SAT 99
[2019-07-29 16:06] LABS: C-Reactive Protein Quant 17.2 mg/dL (<1.0)
[2019-07-29 16:30] VITALS: BP 143/86; PULSE 67; RESP 21; O2SAT 97
[2019-07-29 16:33] LABS: Erythrocyte Sedimentation Rate 33 MM/HR (0-15)
[2019-07-29 17:22] VITALS: BP 154/106; PULSE 72; RESP 17; O2SAT 96
[2019-07-29 17:49] LABS: Influenza A - CEPHEID Flu A NEGATIVE (NEGATIVE); Influenza B - CEPHEID Flu B NEGATIVE (NEGATIVE)
== END 2019-07-29 17:24 | disposition home or self-care (01) ==
PROVIDERS: Emergency Provider Internal Medicine
DX: M79.2 Neuralgia and neuritis, unspecified (principal); G44.89 Other headache syndrome; I10 Essential (primary) hypertension
CPT/HCPCS: 36415; 70450; 80053; 85025; 85651; 86140; 87502; 99283; 99284

== ENCOUNTER 2019-12-23 22:08 | Emergency (ER) | payer OTHER, MEDICARE, SELFPAY ==
[2019-12-23 22:10] VITALS: BP 187/94; PULSE 70; RESP 18; TEMP 36.8; O2SAT 99
--- NOTE | 2019-12-23 22:35 | ED.GENADULT ---
HPI - General Adult General Chief complaint: Hypertension Stated complaint: states hypertension, dizzy Time Seen by Provider: 12/23/19 22:10 Source: patient Mode of arrival: Ambulatory Limitations: no limitations History of Present Illness HPI narrative: 74M non-smoker with history of hypertension presents at the request of his primary care provider for evaluation of a slow gradual increase in his home blood pressures over the past 2 weeks. He by enlarge has had very little in the way of symptoms and complains only of a brief episode of dizziness earlier today. His pressures have been in the 150s over 90s at the most. He denies any chest pain or shortness of breath. He denies any abdominal pain nor nausea or vomiting. He has had no dysuria, frequency or urgency. He is on a combination of losartan and verapamil. He called his PCP earlier today to discuss is blood pressures and arrange for follow-up in a few weeks but was told if his pressure when any higher he should be evaluated. Onset (ago): day(s) Associated symptoms: denies other symptoms Related Data Previous Rx's Medication Instructions Recorded hydrocodone-acetaminophen 1 tab PO Q4-6H PRN #10 tab 07/25/19 ondansetron 4 mg PO TID-QID PRN #10 tab 07/25/19 pantoprazole [Protonix] 40 mg PO DAILY #30 tab 07/25/19 gabapentin [Neurontin] 300 mg PO Q8H #30 cap 07/29/19 Allergies Allergy/AdvReac Type Severity Reaction Status Date / Time No Known Drug Allergies Allergy Verified 07/24/19 23:58 Review of Systems Constitutional Constitutional: Denies chills, Denies fatigue, Denies fever(s), Denies frequent falls, Denies lethargy and Denies weakness Comments: brief dizziness with change of position earlier Eyes Eyes: Denies change in vision, Denies eye discharge, Denies irritation and Denies loss of vision ENT Ears, Nose, Mouth, and Throat: Denies change in voice, Denies dizziness, Denies neck pain, Denies sore throat and Denies throat swelling Cardiovascular Cardiovascular: Denies chest pain, Denies irregular heart rhythm, Denies lightheadedness, Denies palpitations, Denies dyspnea, Denies dyspnea on exertion and Denies orthopnea Respiratory Respiratory: Denies cough, Denies dyspnea, Denies dyspnea on exertion and Denies wheezing Gastrointestinal Gastrointestinal: Denies abdominal pain, Denies change in bowel habits, Denies diarrhea, Denies nausea and Denies vomiting Genitourinary Genitourinary: Denies hematuria, Denies flank pain, Denies urinary incontinence and Denies urinary urgency Musculoskeletal Musculoskeletal: Denies back pain, Denies muscle weakness, Denies neck pain, Denies numbness and Denies tingling Integumentary/Breasts Skin/Breast: Denies pruritus, Denies erythema, Denies rash and Denies wounds Neurologic Neurologic: Denies behavioral changes, Denies confusion, Denies dizziness, Denies frequent falls, Denies loss of vision, Denies numbness, Denies tingling and Denies weakness Psychiatric Psychiatric: Denies anxiety, Denies behavioral changes, Denies confusion, Denies depression, Denies homicidal ideation and Denies suicidal ideation Endocrine Endocrine: Denies fatigue, Denies flushing and Denies palpitations Hematologic/Lymphatic Hematologic/Lymphatic: Denies easy bruising Allergic/Immunologic Allergic/Immunologic: Denies urticaria, Denies throat swelling and Denies wheezing Patient History Medical History HTN (hypertension) (Chronic) Migraine headache (Chronic) Surgical History Status post hernia repair (Resolved) Social History Smoking Status: Never smoker Smoking Status: Never smoker alcohol intake frequency: holidays/special occasions only Substance Use Type: does not use Exam Narrative Exam Narrative: GENERAL: [74] year old patient appears stated age. Well-nourished, well-developed patient, in mild distress. HEAD: Atraumatic. Normocephalic. EYES: Pupils equal round and reactive. Extraocular motions intact. No scleral icterus. No injection or drainage. ENT: Nose without bleeding, purulent drainage. Throat without erythema, tonsillar hypertrophy or exudate. Airway patent. NECK: Trachea midline. Non tender CARDIOVASCULAR: Regular rate and rhythm without murmurs, gallops, or rubs. RESPIRATORY: Clear to auscultation. Breath sounds equal bilaterally. No wheezes, rales, or rhonchi. GASTROINTESTINAL: Abdomen soft, non-tender, nondistended. EXTREMITIES: No edema or joint tenderness. BACK: Nontender without deformity or crepitance. No flank tenderness. NEURO: AOx3. SKIN: No rash or erythema of visible areas Initial Vital Signs Initial Vital Signs: Vital Signs Temperature 98.2 F 12/23/19 22:10 Pulse Rate 70 12/23/19 22:10 Respiratory Rate 18 12/23/19 22:10 Blood Pressure 187/94 H 12/23/19 22:10 Pulse Oximetry 99 12/23/19 22:10 Course Course Course Narrative: BP down to the 130s without intervention. Patient remains asymptomatic. Orders Ordered: ED Orders 12/23/19 22:34 EKG-12 Lead Stat 12/23/19 23:20 Complete Blood Count AUTO DIFF Stat Comprehensive Metabolic Panel Stat Lipase Stat Troponin & CK Cardiac Panel Stat Vital Signs Vital signs: Vital Signs - 8 hr 12/23/19 22:10 12/23/19 23:00 12/23/19 23:09 Temperature 98.2 F Pulse Rate 70 65 66 Respiratory Rate 18 14 16 Blood Pressure 187/94 H Blood Pressure [Left Arm] 142/93 H 134/86 Pulse Oximetry 99 96 98 12/24/19 00:00 Temperature Pulse Rate 64 Respiratory Rate 18 Blood Pressure 144/87 H Blood Pressure [Left Arm] Pulse Oximetry 98 Medical Decision Making Lab Data Result diagrams: 12/23/19 23:20 12/23/19 23:20 Labs: Lab Results 12/23/19 12/23/19 Range/Units 23:20 23:20 WBC 5.0 (4.5-11.0) X10^3/uL RBC 5.10 (4.5-5.9) X10^6/uL Hgb 15.2 (13.5-17.5) g/dL Hct 44.6 (41-53) % MCV 87.4 (80-100) fL MCH 29.8 (26-34) PG MCHC 34.1 (30-36) % RDW 14.3 (11.6-14.8) % Plt Count 205 (150-400) X10^3/uL Neut % (Auto) 46.0 L (50-75) % Lymph % (Auto) 35.9 (25-40) % [place] % (Auto) 15.9 H (3-14) % Eos % (Auto) 1.5 L (2-4) % Baso % (Auto) 0.7 (0-2) % Neut # (Auto) 2300 (6059-3898) /uL Lymph # (Auto) 1800 (3849-1705) /uL [place] # (Auto) 800 (0-900) /uL Eos # (Auto) 100 (0-450) /uL Baso # (Auto) 0 (0-100) /uL Sodium 138 (137-145) mmol/L Potassium 4.1 (3.4-5.1) mmol/L Chloride 104 (98-107) mmol/L Carbon Dioxide 26 (22-32) mmol/L BUN 18 (9-20) mg/dL Creatinine 0.97 (0.66-1.25) mg/dL Estimated GFR > 60.0 (>60) mL/min BUN/Creatinine Ratio 18.6 (6-22) Glucose 140 H (80-110) mg/dL Calcium 9.1 (8.4-10.2) mg/dL Total Bilirubin 0.4 (0.2-1.3) mg/dL AST 27 (17-59) IU/L ALT 25 (<50) IU/L Alkaline Phosphatase 78 (38-126) U/L Total Creatine Kinase 68 (55-170) U/L CK-MB (CK-2) TNP CK-MB (CK-2) Rel Index TNP Troponin I < 0.012 (0.01-0.034) ng/mL Total Protein 7.1 (6.3-8.2) g/dL Albumin 4.2 (3.5-5.0) g/dL Globulin 2.9 (1.7-4.1) g/dL Albumin/Globulin Ratio 1.4 (1.0-2.8) Lipase 149 (23-300) U/L MDM Narrative Medical decision making narrative: 74-year-old male presents with asymptomatic hypertension over the past few weeks. At most pressures have been in the 150s over 90s. Physical exam, EKG and labs are reassuring. Without intervention blood pressure drops to the 130s here in the department. Patient given return precautions and has had his question answered to his apparent satisfaction. Discharge Plan Departure Patient Disposition: Home Clinical Impression: HTN (hypertension) Qualifiers: Hypertension type: essential hypertension Qualified Code(s): I10 - Essential (primary) hypertension Discharge Date/Time: 12/24/19 00:00 Activity Restrictions/Additional Instructions: *You have been diagnosed with [essential hypertension] *What to do: *Take medications as directed *Follow up with your primary care provider in 2-3 days, call for an appointment. Let them know you were seen in the Emergency Department and that we ask that you be seen in follow up *Return to ER if you should have any new, worsening or concerning symptoms, such as [ chest pain, shortness of breath, headache, blurred version or other bothersome symptoms] Prescriptions: No Action hydrocodone-acetaminophen 5-325 mg tablet 1 tab PO Q4-6H PRN (Reason: pain) Qty: 10 RF: 0 pantoprazole [Protonix] 40 mg tablet,delayed release (DR/EC) 40 mg PO DAILY Qty: 30 RF: 0 ondansetron 4 mg tablet,disintegrating 4 mg PO TID-QID PRN (Reason: nausea and vomiting) Qty: 10 RF: 0 gabapentin [Neurontin] 300 mg capsule 300 mg PO Q8H Qty: 30 RF: 0 Referrals: Adrian Uriarte MD [Physician] -
[2019-12-23 23:00] VITALS: BP 142/93; PULSE 65; RESP 14; O2SAT 96
[2019-12-23 23:09] VITALS: BP 134/86; PULSE 66; RESP 16; O2SAT 98
[2019-12-23 23:28] LABS: Add Manual Diff / Slide Review NO; Basophils Absolute Auto 0 /uL (0-100); Basophils Percent Auto 0.7 % (0-2); Eosinophils Absolute Auto 100 /uL (0-450); Eosinophils Percent Auto 1.5 % (2-4); Hematocrit 44.6 % (41-53); Hemoglobin 15.2 g/dL (13.5-17.5); Lymphocytes Absolute Auto 1800 /uL (1100-4500); Lymphocytes Percent Auto 35.9 % (25-40); Mean Corpuscular HGB Conc 34.1 % (30-36); Mean Corpuscular Hemoglobin 29.8 PG (26-34); Mean Corpuscular Volume 87.4 fL (80-100); Monocytes Absolute Auto 800 /uL (0-900); Monocytes Percent Auto 15.9 % (3-14); Neutrophils Absolute Auto 2300 /uL (1500-7000); Platelet Count 205 X10^3/uL (150-400); Red Cell Distribution Width 14.3 % (11.6-14.8)
[2019-12-23 23:38] LABS: Alanine Aminotransferase 25 IU/L (<50); Albumin 4.2 g/dL (3.5-5.0); Albumin Globulin Ratio 1.4 (1.0-2.8); Alkaline Phosphatase 78 U/L (38-126); Aspartate Aminotransferase 27 IU/L (17-59); BUN Creatinine Ratio 18.6 (6-22); Bilirubin Total 0.4 mg/dL (0.2-1.3); Blood Urea Nitrogen 18 mg/dL (9-20); Calcium 9.1 mg/dL (8.4-10.2); Carbon Dioxide 26 mmol/L (22-32); Chloride 104 mmol/L (98-107); Creatine Kinase 68 U/L (55-170); Estimated Glomerular Filt Rate > 60.0 mL/min (>60); Globulin 2.9 g/dL (1.7-4.1); Glucose 140 mg/dL (80-110); HEMOLYSIS < 15 (0-50); Lipase 149 U/L (23-300); Potassium 4.1 mmol/L (3.4-5.1); Sodium 138 mmol/L (137-145); Total Protein 7.1 g/dL (6.3-8.2)
[2019-12-23 23:50] LABS: Troponin I < 0.012 ng/mL (0.01-0.034)
[2019-12-24] VITALS: BP 144/87; PULSE 64; RESP 18; O2SAT 98
== END 2019-12-24 | disposition home or self-care (01) ==
PROVIDERS: Emergency Provider Emergency Medicine
DX: I10 Essential (primary) hypertension (principal); R42 Dizziness and giddiness
CPT/HCPCS: 36415; 80053; 82550; 83690; 84484; 85025; 93005; 99284

== ENCOUNTER → 2020-05-30 19:21 | Outpatient (ROUT) | payer OTHER, MEDICARE, SELFPAY | PROVIDERS: Visit Provider Internal Medicine | DX: R39.9 Unspecified symptoms and signs involving the genitourinary system (principal); R31.9 Hematuria, unspecified | CPT/HCPCS: 87086 ==

== ENCOUNTER → 2020-12-29 19:00 | Outpatient (ROUT) | payer OTHER, MEDICARE, SELFPAY ==
[2020-12-29 20:26] LABS: Aspartate Aminotransferase 31 IU/L (17-59); BUN Creatinine Ratio 14.9 (6-22); Blood Urea Nitrogen 15 mg/dL (9-20); Calcium 9.4 mg/dL (8.4-10.2); Carbon Dioxide 23 mmol/L (22-32); Chloride 108 mmol/L (98-107); Cholesterol 169 mg/dL (140-199); Estimated Glomerular Filt Rate > 60.0 mL/min (>60); Glucose 90 mg/dL (80-110); HDL Cholesterol 47 mg/dL (40-60); HEMOLYSIS < 15 (0-50); LDL Cholesterol Calculated 105 mg/dL (<100); Potassium 4.5 mmol/L (3.4-5.1); Sodium 141 mmol/L (137-145); Triglycerides 83 mg/dL (35-150)
[2021-01-01 10:51] LABS: Prostate Specific Antigen 2.63 ng/mL (0.10-4.00)
== END ==
PROVIDERS: Visit Provider Internal Medicine
DX: I10 Essential (primary) hypertension (principal); E78.2 Mixed hyperlipidemia; N40.0 Benign prostatic hyperplasia without lower urinary tract symptoms
CPT/HCPCS: 80048; 80061; 84153; 84450

== ENCOUNTER → 2022-03-27 10:58 | Outpatient (CLI) | payer OTHER, SELFPAY ==
[2022-03-27 12:17] LABS: Hematocrit 42.3 % (41-53); Hemoglobin 13.6 g/dL (13.5-17.5); Mean Corpuscular HGB Conc 32.3 % (30-36); Mean Corpuscular Hemoglobin 26.5 PG (26-34); Platelet Count 251 X10^3/uL (150-400); Red Blood Cell Count 5.15 X10^6/uL (4.5-5.9); Red Cell Distribution Width 15.2 % (11.6-14.8); White Blood Cell Count 4.9 X10^3/uL (4.5-11.0)
[2022-03-27 13:08] LABS: HEMOLYSIS < 15 (0-50)
[2022-03-27 13:09] LABS: Alanine Aminotransferase 28 IU/L (<50); Albumin 4.4 g/dL (3.5-5.0); Albumin Globulin Ratio 1.8 (1.0-2.8); Alkaline Phosphatase 89 U/L (38-126); Aspartate Aminotransferase 29 IU/L (17-59); BUN Creatinine Ratio 15.8 (6-22); Bilirubin Total 0.7 mg/dL (0.2-1.3); Blood Urea Nitrogen 18 mg/dL (9-20); Calcium 8.9 mg/dL (8.4-10.2); Carbon Dioxide 28 mmol/L (22-32); Chloride 105 mmol/L (98-107); Cholesterol 160 mg/dL (140-199); Estimated Glomerular Filt Rate > 60 mL/min (>60); Globulin 2.5 g/dL (1.7-4.1); Glucose 97 mg/dL (80-110); HDL Cholesterol 44 mg/dL (40-60); LDL Cholesterol Calculated 99 mg/dL (<100); Sodium 141 mmol/L (137-145); Total Protein 6.9 g/dL (6.3-8.2); Triglycerides 86 mg/dL (35-150)
[2022-03-27 13:41] LABS: Prostate Specific Antigen 3.71 ng/mL (0.10-4.00); TSH w/ Reflex to FT4 1.02 uIU/mL (0.47-4.68)
== END ==
PROVIDERS: PCP Internal Medicine; Referring Provider Internal Medicine; Visit Provider Internal Medicine
DX: E78.2 Mixed hyperlipidemia (principal); I10 Essential (primary) hypertension; M10.9 Gout, unspecified; N13.8 Other obstructive and reflux uropathy; N40.1 Benign prostatic hyperplasia with lower urinary tract symptoms
CPT/HCPCS: 36415; 80053; 80061; 84153; 84443; 85027

== ENCOUNTER 2022-11-15 10:52 | Emergency (ER) | payer OTHER, MEDICARE, SELFPAY ==
[2022-11-15 11:05] VITALS: BP 144/84; PULSE 62; RESP 16; TEMP 36.4; O2SAT 98; BMI 26.2
--- NOTE | 2022-11-15 11:17 | DI.RAD.S_ITS ---
PROCEDURE: XR CHEST 1V INDICATIONS: chest pain TECHNIQUE: One view of the chest was acquired. COMPARISON: None. FINDINGS: Surgical changes and devices: None. Lungs and pleura: Lungs are clear. No pleural effusions or pneumothorax. Mediastinum: Heart size is normal. There is a large hiatal hernia. Bones and chest wall: No suspicious bony lesions. Overlying soft tissues appear unremarkable. IMPRESSION: No acute radiographic abnormality. Large hiatal hernia. Approved by: Tacho Palma M.D. on 11/15/2022 at 11:46
[2022-11-15 11:32] LABS: Add Manual Diff / Slide Review NO; Basophils Absolute Auto 100 /uL (0-100); Eosinophils Absolute Auto 200 /uL (0-450); Hematocrit 43.6 % (41-53); Hemoglobin 14.3 g/dL (13.5-17.5); Lymphocytes Absolute Auto 1600 /uL (1100-4500); Lymphocytes Percent Auto 31.6 % (25-40); Mean Corpuscular HGB Conc 32.9 % (30-36); Mean Corpuscular Hemoglobin 27.9 PG (26-34); Monocytes Absolute Auto 600 /uL (0-900); Monocytes Percent Auto 11.3 % (3-14); Neutrophils Absolute Auto 2600 /uL (1500-7000); Neutrophils Percent Auto 52.1 % (50-75); Platelet Count 252 X10^3/uL (150-400); Red Blood Cell Count 5.13 X10^6/uL (4.5-5.9); Red Cell Distribution Width 14.3 % (11.6-14.8); White Blood Cell Count 5.1 X10^3/uL (4.5-11.0)
[2022-11-15 11:41] LABS: INR 1.1 (0.9-1.3); Prothrombin Time 12.3 SECONDS (10.1-12.7)
[2022-11-15 11:44] LABS: PTT Partial Thromboplastin Tim 28 SECONDS (26-36)
[2022-11-15 11:46] LABS: Alanine Aminotransferase 33 IU/L (<50); Albumin 4.3 g/dL (3.5-5.0); Albumin Globulin Ratio 1.5 (1.0-2.8); Alkaline Phosphatase 75 U/L (38-126); Aspartate Aminotransferase 32 IU/L (17-59); BUN Creatinine Ratio 19.8 (6-22); Bilirubin Total 0.7 mg/dL (0.2-1.3); Blood Urea Nitrogen 22 mg/dL (9-20); Carbon Dioxide 23 mmol/L (22-32); Chloride 105 mmol/L (98-107); Creatine Kinase 88 U/L (55-170); Estimated Glomerular Filt Rate > 60 mL/min (>60); Globulin 2.9 g/dL (1.7-4.1); Glucose 123 mg/dL (80-110); HEMOLYSIS < 15 (0-50); Lipase 122 U/L (23-300); Magnesium 1.9 mg/dL (1.6-2.3); Potassium 3.8 mmol/L (3.4-5.1); Sodium 138 mmol/L (137-145); Total Protein 7.2 g/dL (6.3-8.2)
[2022-11-15 11:59] LABS: NT-proBNP (BNP-Adult 18+) 87 pg/mL (<450); Troponin I < 0.012 ng/mL (0.01-0.034)
[2022-11-15 12:00] VITALS: PULSE 111; RESP 16; O2SAT 98
[2022-11-15] MEDS: ASPIRIN 81 MG CHEW TAB 324 MG PO (12:09)
[2022-11-15 12:14] VITALS: BP 109/71; PULSE 63; RESP 18; O2SAT 98
--- NOTE | 2022-11-15 13:26 | ED_ITS ---
HPI - Chest Pain General Chief Complaint: Chest Pain Stated Complaint: sent by /CHARI/chest pain/radaiting to arm Time Seen by Provider: 11/15/22 11:21 Source: patient Mode of arrival: Ambulatory Limitations: no limitations History of Present Illness HPI narrative: Patient is a 77-year-old male history of hypertension gout presenting today with chest discomfort radiating to his left arm ongoing for last 2 weeks. He called his PCP today to get appointment for a checkup however they recommended he come to the ED for evaluation. He reports no worsening symptoms today. He just states while active sometimes he describes some chest pressure sometimes radiates to his left arm sometimes not it sent ever stop him from his activity. While in the emergency department he has absolutely no symptoms. He is not had any fever chills nausea vomiting weakness. He has no known coronary artery disease he is a nonsmoker Related Data Home Medications Medication Instructions Recorded Confirmed allopurinol 100 mg tablet 100 mg PO DAILY 03/27/22 03/27/22 losartan 50 mg-hydrochlorothiazide 1 tab PO DAILY 03/27/22 03/27/22 12.5 mg tablet sertraline 50 mg tablet 50 mg PO DAILY 03/27/22 03/27/22 tamsulosin 0.4 mg capsule 0.4 mg PO BEDTIME 03/27/22 03/27/22 Previous Rx's Medication Instructions Recorded pantoprazole 40 mg tablet,delayed 40 mg PO DAILY #30 tabs 07/25/19 release (Protonix) rosuvastatin 10 mg tablet 10 mg PO DAILY #90 tabs 03/27/22 Allergies Allergy/AdvReac Type Severity Reaction Status Date / Time No Known Drug Allergies Allergy Verified 11/15/22 11:16 Review of Systems Review of Systems ROS Unobtainable: All systems reviewed & are unremarkable except as noted in HPI and below Patient History Medical History Advanced directives, counseling/discussion BPH w urinary obs/LUTS BPPV (benign paroxysmal positional vertigo) Essential hypertension GERD without esophagitis Gout Medicare annual wellness visit, initial Migraine headache Mixed hyperlipidemia Psoriasis Surgical History Status post hernia repair Social History Smoking Status: Never smoker Smoking Status: Never smoker alcohol intake frequency: holidays/special occasions only Substance Use Type: does not use Exam Initial Vital Signs Initial Vital Signs: Vital Signs Temperature 97.5 F L 11/15/22 11:05 Pulse Rate 62 11/15/22 11:05 Respiratory Rate 16 11/15/22 11:05 Blood Pressure 144/84 H 11/15/22 11:05 Pulse Oximetry 98 11/15/22 11:05 Oxygen Delivery Method Room Air 11/15/22 11:05 GENERAL: Alert pleasant 77-year-old male appears younger than stated age and in no acute distress. HEENT: Head atraumatic,EOMI, pupils reactive, face symmetric, moist mucous membranes CARDIOVASCULAR: Regular rate and rhythm without murmurs, rubs or gallops. RESPIRATORY: Breath sounds equal bilaterally, no wheezes rales or rhonchi. ABDOMEN: Soft, nontender. Normoactive bowel sounds all 4 quadrants. No guarding or rebound. EXTREMITIES: Normal range of motion, no clubbing or edema. Neurovascularly intact NEUROLOGICAL: Alert and oriented x4.Normal gait and speech. SKIN: Warm, dry, no laceration, no petechiae, no rashes or lesions. Course Orders Ordered: Discontinued Medications Aspirin (Aspirin 81 Mg Chew Tab) 324 mg PO NOW ONE Stop: 11/15/22 11:18 Last Admin: 11/15/22 12:09 Dose: 324 mg Documented By: FAB Vital Signs Vital signs: Vital Signs - 8 hr 11/15/22 11:05 11/15/22 12:14 11/15/22 12:00 Temperature 97.5 F L Pulse Rate 62 63 111 H Respiratory Rate 16 18 16 Blood Pressure 144/84 H 109/71 Pulse Oximetry 98 98 Oxygen Delivery Method Room Air Room Air 11/15/22 13:29 11/15/22 14:38 Temperature Pulse Rate 63 59 L Respiratory Rate 18 18 Blood Pressure 115/75 126/85 Pulse Oximetry 99 97 Oxygen Delivery Method Room Air Room Air MDM - Chest Pain Lab Data 11/15/22 11:25 11/15/22 11:25 Labs: Lab Results 11/15/22 11/15/22 11/15/22 Range/Units 11:25 11:25 11:25 WBC 5.1 (4.5-11.0) X10^3/uL RBC 5.13 (4.5-5.9) X10^6/uL Hgb 14.3 (13.5-17.5) g/dL Hct 43.6 (41-53) % MCV 85.0 (80-100) fL MCH 27.9 (26-34) PG MCHC 32.9 (30-36) % RDW 14.3 (11.6-14.8) % Plt Count 252 (150-400) X10^3/uL Neut % (Auto) 52.1 (50-75) % Lymph % (Auto) 31.6 (25-40) % [place] % (Auto) 11.3 (3-14) % Eos % (Auto) 4.0 (2-4) % Baso % (Auto) 1.0 (0-2) % Neut # (Auto) 2600 (6128-7104) /uL Lymph # (Auto) 1600 (1030-8687) /uL [place] # (Auto) 600 (0-900) /uL Eos # (Auto) 200 (0-450) /uL Baso # (Auto) 100 (0-100) /uL PT 12.3 (10.1-12.7) SECONDS INR 1.1 (0.9-1.3) APTT 28 (26-36) SECONDS Sodium 138 (137-145) mmol/L Potassium 3.8 (3.4-5.1) mmol/L Chloride 105 (98-107) mmol/L Carbon Dioxide 23 (22-32) mmol/L BUN 22 H (9-20) mg/dL Creatinine 1.11 (0.66-1.25) mg/dL Estimated GFR > 60 (>60) mL/min BUN/Creatinine Ratio 19.8 (6-22) Glucose 123 H (80-110) mg/dL Calcium 9.0 (8.4-10.2) mg/dL Magnesium 1.9 (1.6-2.3) mg/dL Total Bilirubin 0.7 (0.2-1.3) mg/dL AST 32 (17-59) IU/L ALT 33 (<50) IU/L Alkaline Phosphatase 75 (38-126) U/L Total Creatine Kinase 88 (55-170) U/L CK-MB (CK-2) TNP CK-MB (CK-2) Rel Index TNP Troponin I < 0.012 (0.01-0.034) ng/mL NT-Pro-B Natriuret Pep 87 (<450) pg/mL Total Protein 7.2 (6.3-8.2) g/dL Albumin 4.3 (3.5-5.0) g/dL Globulin 2.9 (1.7-4.1) g/dL Albumin/Globulin Ratio 1.5 (1.0-2.8) Lipase 122 (23-300) U/L 11/15/22 Range/Units 13:25 WBC (4.5-11.0) X10^3/uL RBC (4.5-5.9) X10^6/uL Hgb (13.5-17.5) g/dL Hct (41-53) % MCV (80-100) fL MCH (26-34) PG MCHC (30-36) % RDW (11.6-14.8) % Plt Count (150-400) X10^3/uL Neut % (Auto) (50-75) % Lymph % (Auto) (25-40) % [place] % (Auto) (3-14) % Eos % (Auto) (2-4) % Baso % (Auto) (0-2) % Neut # (Auto) (3311-9116) /uL Lymph # (Auto) (3114-1998) /uL [place] # (Auto) (0-900) /uL Eos # (Auto) (0-450) /uL Baso # (Auto) (0-100) /uL PT (10.1-12.7) SECONDS INR (0.9-1.3) APTT (26-36) SECONDS Sodium (137-145) mmol/L Potassium (3.4-5.1) mmol/L Chloride (98-107) mmol/L Carbon Dioxide (22-32) mmol/L BUN (9-20) mg/dL Creatinine (0.66-1.25) mg/dL Estimated GFR (>60) mL/min BUN/Creatinine Ratio (6-22) Glucose (80-110) mg/dL Calcium (8.4-10.2) mg/dL Magnesium (1.6-2.3) mg/dL Total Bilirubin (0.2-1.3) mg/dL AST (17-59) IU/L ALT (<50) IU/L Alkaline Phosphatase (38-126) U/L Total Creatine Kinase (55-170) U/L CK-MB (CK-2) CK-MB (CK-2) Rel Index Troponin I < 0.012 (0.01-0.034) ng/mL NT-Pro-B Natriuret Pep (<450) pg/mL Total Protein (6.3-8.2) g/dL Albumin (3.5-5.0) g/dL Globulin (1.7-4.1) g/dL Albumin/Globulin Ratio (1.0-2.8) Lipase (23-300) U/L Imaging Data Chest x-ray: Radiologist's Impression: PROCEDURE:? XR CHEST 1V ? INDICATIONS:? chest pain ? TECHNIQUE:? One view of the chest was acquired.? ? COMPARISON:? None. ? FINDINGS:? ? Surgical changes and devices:? None.? ? Lungs and pleura:? Lungs are clear.? No pleural effusions or pneumothorax.? ? Mediastinum:? Heart size is normal.? There is a large hiatal hernia. ? Bones and chest wall:? No suspicious bony lesions.? Overlying soft tissues appear unremarkable.? ? IMPRESSION:? No acute radiographic abnormality.? Large hiatal hernia. ? ? Approved by: Tacho Palma M.D. on 11/15/2022 at 11:46? ECG Data Interpretation: Normal sinus rhythm rate 62 PA interval 188 QRS [address] changes, T-wave inversion noted in lead 3 similar to previous EKG in 2020 EKG 2. Sinus rhythm rate [address] changes similar to prior MDM Narrative Medical decision making narrative: Patient 77-year-old male history of hypertension presenting today with chest pressure sometimes radiating to his left arm. It has been ongoing for the last 2 weeks it is not any worse today he simply tried to make an appointment with his PCP today in regards to this problem. He has been chest pain-free in the ED he has no EKG changes he is 2- troponins other blood work and chest x-ray are negative. I have discussed at length with him this is concerning for cardiac. Unfortunately it is Friday we are unable to get any kind of stress test until Friday. I have spoken with Dr. Uriarte patient's PCP in regards to this problem he kindly called back on his vacation. He is calling his office to arrange for outpatient stress test. I have spoken at length with patient. Express my concern for cardiac disease and strongly encouraged him to return by ambulance for any worsening symptoms. Patient agrees. Differential diagnosis acute coronary syndrome angina, pericarditis, pulmonary embolism pneumothorax, pneumonia,gerd Discharge Plan Departure Patient Disposition: Home Clinical Impression: Chest pain Instructions: DI for Angina Activity Restrictions/Additional Instructions: *You have been diagnosed with chest pain *What to do: At this time your symptoms are concerning for heart problems, unf ortunately we are not able to get the testing done that you need over the weekend and your symptoms are not any worse today than they have been previously. You need a stress test and an echocardiogram. I have spoken with Dr. Uriarte who is going to help arrange this. However if at any point in time you have worsening chest pressure shortness of breath sweatiness nausea vomiting left arm pain jaw pain or any other symptoms you are to call 911 immediately and come to the emergency department *Continue to take medications as directed Aspirin 81 mg daily *Follow up with your primary care provider in 2-3 days or call [phone] *Return to ER if you should have any of the above symptoms or any new, worsening or concerning symptoms Prescriptions: No Action sertraline 50 mg tablet 50 mg PO DAILY losartan-hydrochlorothiazide 50-12.5 mg tablet 1 tab PO DAILY Patient Comments: TAKE ONE TABLET BY MOUTH ONE TIME DAILY tamsulosin 0.4 mg capsule 0.4 mg PO BEDTIME Patient Comments: TAKE ONE CAPSULE BY MOUTH IN THE EVENING FOR URINATION allopurinol 100 mg tablet 100 mg PO DAILY Patient Comments: TAKE ONE TABLET BY MOUTH ONE TIME DAILY FOR URIC ACID rosuvastatin 10 mg tablet 10 mg PO DAILY Qty: 90 3RF pantoprazole [Protonix] 40 mg tablet,delayed release (DR/EC) 40 mg PO DAILY Qty: 30 0RF Referrals: Adrian Uriarte MD [Primary Care Provider] - Stand Alone Forms: Patient Portal/API
[2022-11-15 13:29] VITALS: BP 115/75; PULSE 63; RESP 18; O2SAT 99
[2022-11-15 14:10] LABS: Troponin I < 0.012 ng/mL (0.01-0.034)
[2022-11-15 14:38] VITALS: BP 126/85; PULSE 59; RESP 18; O2SAT 97
[2022-11-15 15:21] VITALS: BP 130/90; PULSE 57; RESP 16; O2SAT 98
== END 2022-11-15 15:22 | disposition home or self-care (01) ==
PROVIDERS: Emergency Provider Emergency Medicine; PCP Internal Medicine
DX: R07.9 Chest pain, unspecified (principal)
CPT/HCPCS: 36415; 71045; 80053; 82550; 83690; 83735; 83880; 84484; 85025; 85610; 85730; 93005; 93010; 99284

== ENCOUNTER → 2022-12-03 07:11 | Outpatient (CLI) | payer OTHER, MEDICARE, SELFPAY ==
--- NOTE | 2022-12-03 07:15 | DI.NM.S_ITS ---
PROCEDURE: NM DAVID PERF SPECT REST & STR Rest and exercise myocardial perfusion SPECT with gated imaging and ejection fraction RADIOPHARMACEUTICAL: 25.0 mCi Tc-99m sestamibi IV at rest and 27.5 mCi Tc-99m sestamibi IV at peak exercise. A [id number] was performed. INDICATIONS: Chest pain TECHNIQUE: Radiopharmaceutical was injected at peak stress test, and also at rest. SPECT images were obtained. SPECT myocardial perfusion images were displayed in short axis, horizontal long axis, and vertical long axis views. Gated images were reviewed using [employer] software. COMPARISON: None. CARDIAC STRESS: A standard Nicolas treadmill exercise tolerance test was performed by the patient under the supervision of an attending staff. The patient exercised for 4 minutes and 11 seconds; 7.0 METS; functional aerobic impairment (ROB) is +17%. Hemodynamic data: There is normal blood pressure and heart rate response to exercise stress. Patient achieved 104% of maximum predicted heart rate at peak exercise. Maximum blood pressure 178/90. Symptoms: Patient denied chest pain during exercise. EKG: No diagnostic EKG changes of ischemia; no ectopy. FINDINGS: Raw data: There is good myocardial labeling by radiotracer. No significant motion artifacts. Fyzh-fc-[id number] ratio is 0.26 (normal is less than 0.38 for sestamibi tracer, and less than 0.50 for thallium tracer). Left ventricle function: Gated images demonstrate normal left ventricle wall thickening. No segmental wall motion abnormality. No transient ischemic dilation; TID is 0.85 (normal less than 1.3). The left ventricle resting end-diastolic volume is 86 mL. Left ventricle stress ejection fraction is >75%; normal values are above 45%. Myocardial perfusion: There is normal distribution of activity in the left and right ventricular myocardium. No fixed or reversible perfusion defects. IMPRESSION: Low risk study. No evidence of exercise-induced ischemia on ECG or SPECT imaging. Hyperdynamic LV function. Normal hemodynamic response. Slightly reduced exercise capacity. Dictated by: Jody Mathur D.O. on 12/04/2022 at 16:53 Approved by: Jody Mathur D.O. on 12/04/2022 at 16:57
== END ==
PROVIDERS: PCP Internal Medicine; Referring Provider Internal Medicine; Visit Provider Internal Medicine
DX: R07.9 Chest pain, unspecified (principal)
CPT/HCPCS: 78452; 93017; A9502

== ENCOUNTER → 2023-01-09 08:20 | Outpatient (CLI) | payer OTHER, MEDICARE, SELFPAY ==
[2023-01-09 09:06] LABS: Hemoglobin 14.2 g/dL (13.5-17.5); Mean Corpuscular HGB Conc 33.1 % (30-36); Mean Corpuscular Hemoglobin 27.9 PG (26-34); Mean Corpuscular Volume 84.3 fL (80-100); Platelet Count 223 X10^3/uL (150-400); Red Cell Distribution Width 15.4 % (11.6-14.8); White Blood Cell Count 5.5 X10^3/uL (4.5-11.0)
[2023-01-09 09:15] LABS: HEMOLYSIS < 15 (0-50)
[2023-01-09 09:21] LABS: Alanine Aminotransferase 33 IU/L (<50); Albumin 4.4 g/dL (3.5-5.0); Albumin Globulin Ratio 1.6 (1.0-2.8); Alkaline Phosphatase 73 U/L (38-126); Aspartate Aminotransferase 33 IU/L (17-59); Bilirubin Total 0.9 mg/dL (0.2-1.3); Blood Urea Nitrogen 18 mg/dL (9-20); Calcium 8.8 mg/dL (8.4-10.2); Carbon Dioxide 27 mmol/L (22-32); Chloride 104 mmol/L (98-107); Cholesterol 130 mg/dL (140-199); Estimated Glomerular Filt Rate > 60 mL/min (>60); Globulin 2.8 g/dL (1.7-4.1); Glucose 95 mg/dL (80-110); HDL Cholesterol 49 mg/dL (40-60); LDL Cholesterol Calculated 62 mg/dL (<100); Sodium 139 mmol/L (137-145); Total Protein 7.2 g/dL (6.3-8.2); Triglycerides 95 mg/dL (35-150)
== END ==
PROVIDERS: PCP Internal Medicine; Referring Provider Internal Medicine; Visit Provider Internal Medicine
DX: E78.2 Mixed hyperlipidemia (principal); I10 Essential (primary) hypertension; N13.8 Other obstructive and reflux uropathy
CPT/HCPCS: 36415; 80053; 80061; 84153; 84443; 85027

== ENCOUNTER → 2023-07-25 09:32 | Outpatient (CLI) | payer OTHER, MEDICARE, SELFPAY ==
[2023-07-25 11:11] LABS: Hemoglobin A1C% w Est Avg Glu 6.1 % (4.0-6.0)
[2023-07-25 11:33] LABS: Glucose 94 mg/dL (80-110)
== END ==
PROVIDERS: PCP Internal Medicine; Referring Provider Internal Medicine; Visit Provider Internal Medicine
DX: R73.01 Impaired fasting glucose (principal)
CPT/HCPCS: 36415; 82947; 83036

== ENCOUNTER → 2024-01-05 09:47 | Outpatient (CLI) | payer OTHER, MEDICARE, SELFPAY ==
[2024-01-05 10:36] LABS: Hemoglobin A1C% w Est Avg Glu 6.1 % (4.0-6.0)
[2024-01-05 10:55] LABS: Aspartate Aminotransferase 33 IU/L (17-59); BUN Creatinine Ratio 17.9 (6-22); Blood Urea Nitrogen 20 mg/dL (9-20); Calcium 9.4 mg/dL (8.4-10.2); Carbon Dioxide 28 mmol/L (22-32); Chloride 107 mmol/L (98-107); Estimated Glomerular Filt Rate > 60 mL/min (>60); Glucose 95 mg/dL (80-110); HEMOLYSIS < 15 (0-50); Sodium 140 mmol/L (137-145)
[2024-01-05 11:24] LABS: Prostate Specific Antigen 2.74 ng/mL (0.10-4.00)
== END ==
PROVIDERS: PCP Internal Medicine; Referring Provider Internal Medicine; Visit Provider Internal Medicine
DX: R73.01 Impaired fasting glucose (principal); N40.1 Benign prostatic hyperplasia with lower urinary tract symptoms; N13.8 Other obstructive and reflux uropathy; E78.2 Mixed hyperlipidemia
CPT/HCPCS: 36415; 80048; 83036; 84153; 84450

== ENCOUNTER → 2025-03-10 15:14 | Outpatient (CLI) | payer MEDICARE, SELFPAY ==
[2025-03-10 17:43] LABS: Hematocrit 46.6 % (41-53); Hemoglobin 16.0 g/dL (13.5-17.5); Mean Corpuscular HGB Conc 34.3 % (30-36); Mean Corpuscular Hemoglobin 31.7 PG (26-34); Mean Corpuscular Volume 92.6 fL (80-100); Platelet Count 209 X10^3/uL (150-400)
[2025-03-10 17:57] LABS: Hemoglobin A1C% w Est Avg Glu 5.5 % (4.0-6.0)
[2025-03-10 18:19] LABS: Alanine Aminotransferase 38 IU/L (<50); Albumin 4.6 g/dL (3.5-5.0); Albumin Globulin Ratio 1.7 (1.0-2.8); Alkaline Phosphatase 71 U/L (38-126); Blood Urea Nitrogen 21 mg/dL (9-20); Calcium 10.3 mg/dL (8.4-10.2); Carbon Dioxide 25 mmol/L (22-32); Chloride 105 mmol/L (98-107); Cholesterol 113 mg/dL (140-199); Estimated Glomerular Filt Rate > 60 mL/min (>60); Globulin 2.7 g/dL (1.7-4.1); Glucose 71 mg/dL (70-99); HDL Cholesterol 38 mg/dL (40-60); HEMOLYSIS 38 (0-50); Potassium 3.9 mmol/L (3.4-5.1); Sodium 140 mmol/L (137-145); Total Protein 7.3 g/dL (6.3-8.2); Triglycerides 141 mg/dL (35-150)
[2025-03-10 18:44] LABS: TSH w/ Reflex to FT4 1.41 uIU/mL (0.47-4.68)
[2025-03-10 18:49] LABS: Prostate Specific Antigen 3.17 ng/mL (0.10-4.00)
== END ==
PROVIDERS: PCP Internal Medicine; Referring Provider Internal Medicine; Visit Provider Internal Medicine
DX: N40.1 Benign prostatic hyperplasia with lower urinary tract symptoms (principal); E78.2 Mixed hyperlipidemia; R73.01 Impaired fasting glucose; N13.8 Other obstructive and reflux uropathy; L40.9 Psoriasis, unspecified
CPT/HCPCS: 36415; 80053; 80061; 83036; 84153; 84443; 85027